=== PATIENT | female | born 1985 ===

== ENCOUNTER 2018-10-17 14:38 | Emergency (ER) | payer OTHER ==
[2018-10-17 15:00] VITALS: BP 122/74
--- NOTE | 2018-10-17 15:06 | UC ---
Complaint Female HPI - HPI Summary HPI Summary: 33-year-old otherwise healthy female presents with complaint of dysuria and suprapubic pressure since this morning. She states that she has felt hot for the last couple days but has not measured a temperature. She has had some minor nausea without vomiting or back pain. She has no personal history of urinary tract infection. She states her last menstrual period is about 3 weeks ago but states that she is hoping to . URINE HCG: NEG Lab Results 10/17/18 Range/Units 15:05 POC Urine Color Light yellow POC Urine Clarity Cloudy POC Urine pH 6.0 (5-9) POC Ur Specif [place] 1.020 (1.010-1.030) POC Urine Protein 2+ A (Negative) POC Ur Glucose (UA) Negative (Negative) POC Urine Ketones Negative (Negative) POC Urine Blood 3+ A (Negative) POC Urine Nitrite Negative (Negative) POC Urine Bilirubin Negative (Negative) POC Urine Urobilinogen 0.2 (Negative) POC U Leukocyte Esteras 3+ A (Negative) - History Of Current Complaint Stated Complaint: URINARY COMPLAINT Time Seen by Provider: 10/17/18 14:53 Hx Obtained From: Patient, Family/Virologist Hx Last Menstrual Period: [id number] Pain Intensity: 3 - Allergies/Home Medications Allergies/Adverse Reactions: Allergies Allergy/AdvReac Type Severity Reaction Status Date / Time No Known Allergies Allergy Verified 10/17/18 14:48 PMH/Surg Hx/FS Hx/Imm Hx Previously Healthy: Yes - Surgical History Surgical History: Yes Surgery Procedure, Year, and Place: wisdom teeth, T&A - Family History Known Family History: Positive: Non-Contributory - Social History Occupation: Unemployed - Just arrived in the Lives: With Family Alcohol Use: None Substance Use Type: None Smoking Status (MU): Never Smoked Tobacco Review of Systems All Other Systems Reviewed And Are Negative: Yes Constitutional: Positive: Chills. Negative: Fever Skin: Positive: Negative Respiratory: Positive: Negative Cardiovascular: Positive: Negative Gastrointestinal: Positive: Nausea. Negative: Abdominal Pain, Vomiting Genitourinary: Positive: Dysuria, Hematuria, Frequency, Urgency Motor: Positive: Negative Neurovascular: Positive: Negative Physical Exam Triage Information Reviewed: Yes Appearance: Well-Appearing, No Pain Distress Vital Signs: Initial Vital Signs Temp 98.8 F 10/17/18 14:50 Pulse 95 10/17/18 14:50 Resp 16 10/17/18 14:50 BP 122/74 10/17/18 14:50 Pulse Ox 100 10/17/18 14:50 Eyes: Positive: Conjunctiva Clear ENT: Positive: Hearing grossly normal, TMs normal Neck: Positive: Supple Respiratory: Positive: Chest non-tender Cardiovascular: Positive: RRR Abdomen Description: Positive: Nontender, Soft Pelvic Exam: Positive: Other - No CVA tenderness Musculoskeletal: Positive: No Edema Neurological: Positive: Alert Psychological Exam: Normal Complaint Female Dx - Course Course Of Treatment: Uncomplicated UTI in female. No hx of same. Tx with keflex, pyridium and cranberry. PCP referral. - Differential Dx/Diagnosis Differential Diagnosis/HQI/PQRI: Sexually Transmitted Disease, Ureteral Stone, Urinary Tract Infection Provider Diagnosis: Acute cystitis with hematuria Discharge - Sign-Out/Discharge Documenting (check all that apply): Patient Departure All imaging exams completed and their final reports reviewed: No - Discharge Plan Condition: Improved Disposition: HOME Prescriptions: Cephalexin CAP* [Keflex CAP*] 500 mg PO TID #21 cap Phenazopyridine 200 mg (NF) [Pyridium 200 MG tab *] 200 mg PO TID #9 tab Patient Education Materials: Urinary Tract Infection in Women (ED) Referrals: [facility] [Outside] [facility] [Outside] Additional Instructions: Drink plenty of fluids. Cranberry juice may help. Return with fever, back pain , vomiting, worse or other concerns. - Billing Disposition and Condition Condition: IMPROVED Disposition: Home
--- NOTE | 2018-10-19 16:00 | UC ---
- Progress Note Progress Note: urine culture preliminary results: Escherichia coli 10-25,000 CFU/mL patient on Keflex Await final sensitivity reports No change in plan Course/Dx - Diagnoses Provider Diagnoses: Acute cystitis with hematuria Discharge - Sign-Out/Discharge Documenting (check all that apply): Post-Discharge Follow Up All imaging exams completed and their final reports reviewed: No - Discharge Plan Condition: Improved Disposition: HOME Prescriptions: Cephalexin CAP* [Keflex CAP*] 500 mg PO TID #21 cap Phenazopyridine 200 mg (NF) [Pyridium 200 MG tab *] 200 mg PO TID #9 tab Patient Education Materials: Urinary Tract Infection in Women (ED) Referrals: [facility] [Outside] [facility] [Outside] Additional Instructions: Drink plenty of fluids. Cranberry juice may help. Return with fever, back pain , vomiting, worse or other concerns. - Billing Disposition and Condition Condition: IMPROVED Disposition: Home
--- NOTE | 2018-10-20 15:27 | UC ---
- Progress Note Progress Note: 10/2018 Urine culture: positive for E.Coli. Pt Rx Keflex PO Final Reprots shows sensitivity for the Kelflex PO No change Hamilton Thompson PA-C Course/Dx - Diagnoses Provider Diagnoses: Acute cystitis with hematuria Discharge - Sign-Out/Discharge Documenting (check all that apply): Post-Discharge Follow Up All imaging exams completed and their final reports reviewed: No - Discharge Plan Condition: Improved Disposition: HOME Prescriptions: Cephalexin CAP* [Keflex CAP*] 500 mg PO TID #21 cap Phenazopyridine 200 mg (NF) [Pyridium 200 MG tab *] 200 mg PO TID #9 tab Patient Education Materials: Urinary Tract Infection in Women (ED) Referrals: [facility] [Outside] [facility] [Outside] Additional Instructions: Drink plenty of fluids. Cranberry juice may help. Return with fever, back pain , vomiting, worse or other concerns. - Billing Disposition and Condition Condition: IMPROVED Disposition: Home
== END 2018-10-17 15:28 | disposition home or self-care (01) ==
LOC: UCEAST 14:38
DX: N30.01 Acute cystitis with hematuria (principal); B96.20 Unspecified Escherichia coli [E. coli] as the cause of diseases classified elsewhere; R11.0 Nausea
CPT/HCPCS: 81003; 84702; 87077; 87086; 87186; 99202; G0463

== ENCOUNTER 2018-12-05 17:28 | Emergency (ER) | payer OTHER ==
[2018-12-05 17:34] VITALS: BP 107/79
--- NOTE | 2018-12-05 17:54 | UC ---
Complaint Female HPI - HPI Summary HPI Summary: 34 y/o female presents to the urgent care - History Of Current Complaint Chief Complaint: UCGU Stated Complaint: POSS UTI Time Seen by Provider: 12/05/18 17:36 Hx Obtained From: Patient Hx Last Menstrual Period: [id number] Pain Intensity: 8 - Allergies/Home Medications Allergies/Adverse Reactions: Allergies Allergy/AdvReac Type Severity Reaction Status Date / Time No Known Allergies Allergy Verified 12/05/18 17:34 PMH/Surg Hx/FS Hx/Imm Hx - Surgical History Surgical History: Yes Surgery Procedure, Year, and Place: wisdom teeth, T&A - Family History Known Family History: Positive: Non-Contributory - Social History Alcohol Use: None Substance Use Type: None Smoking Status (MU): Never Smoked Tobacco Physical Exam - Summary Physical Exam Summary: VITAL SIGNS: Reviewed. GENERAL: Patient is a well developed and nourished female who is sitting comfortable in the examining table. Patient is not in any acute respiratory distress. HEAD AND FACE: No signs of trauma. No ecchymosis, hematomas or skull depressions. No sinus tenderness. EYES: PERRLA, EOMI x 2, No injected conjunctiva, clear watery eyes, no nystagmus. No photophobia. EARS: Hearing grossly intact. Ear canals and tympanic membranes are within normal limits. MOUTH: pharynx with no erythema, no exudates,no palatal petechiae. no B/L tonsillar enlargement Uvula in midline. NECK: Supple, trachea is midline, no lymphadenopathy, no JVD, no carotid bruit, no c-spine tenderness, neck with full ROM. CHEST: Symmetric, no tenderness at palpation LUNGS: Clear to auscultation bilaterally. No wheezing or crackles. CVS: Regular rate and rhythm, S1 and S2 present, no murmurs or gallops appreciated. ABDOMEN: Soft, non-tender. No signs of distention. No rebound no guarding, and no masses palpated. Bowel sounds are normal. BACK:no scoliosis or lesions, non tender to palpation, No B/L CVA tenderness EXTREMITIES: FROM in all major joints, no edema, no cyanosis or clubbing. NEURO: Alert and oriented x 3. No acute neurological deficits. Speech is normal and follows commands. SKIN: Dry and warm Triage Information Reviewed: Yes Vital Signs: Initial Vital Signs Temp 98.3 F 12/05/18 17:30 Pulse 97 12/05/18 17:30 Resp 18 12/05/18 17:30 BP 107/79 12/05/18 17:30 Pulse Ox 100 12/05/18 17:30 Complaint Female Dx - Differential Dx/Diagnosis Differential Diagnosis/HQI/PQRI: Cervicitis, Pelvic Inflammatory Disease, , Renal Colic, Urinary Tract Infection Provider Diagnosis: UTI (urinary tract infection), Dysuria Discharge - Sign-Out/Discharge Documenting (check all that apply): Patient Departure All imaging exams completed and their final reports reviewed: No Studies - Discharge Plan Condition: Stable Disposition: HOME Patient Education Materials: Urinary Tract Infection in Women (ED) Referrals: Darrick MECHANICAL PROJECT ENGINEER,Krissy MECHANICAL PROJECT ENGINEER [Primary Care Provider] - 3 Days Additional Instructions: 1- Please take Macrobid 100mg PO x 7 days. Pyridium 100 mg PO TID x 2 days to alleviate urinary symptoms. Increase increase fluid intake. drink cranberry juice. 2-Urine sent for culture if any abnormality, you will be notified for further treatment. 3-If symptoms do not improve please return to the urgent care or f/u with your PCP for further management. - Billing Disposition and Condition Condition: STABLE Disposition: Home
== END 2018-12-05 18:27 | disposition home or self-care (01) ==
LOC: UCEAST 17:28
DX: N39.0 Urinary tract infection, site not specified (principal); B96.20 Unspecified Escherichia coli [E. coli] as the cause of diseases classified elsewhere
CPT/HCPCS: 81003; 87077; 87086; 87186; 99212; G0463

== ENCOUNTER 2019-04-07 07:38 | Emergency (ER) | payer OTHER ==
--- OUTSIDE RECORDS SUMMARY | 2019-04-07 07:45 | XMS REPORT | Continuity of Care Document ---
:06/11/1984 External Reference #:[id number] Author Name Cristian Gonzalez JR, DO (transmitted by agent of provider Marielle Bravo ) Address [address] [place] [address] Problems Active Problems Provider Date Pelvic and perineal pain Cristian Gonzalez JR, DO Onset: 03/09/2019 Social History Type Date Description Comments Sex Unknown Tobacco Use Start: Unknown Never Smoked Cigarettes ETOH Use Denies alcohol use Recreational Drug Use Denies Drug Use Tobacco Use Start: Unknown Patient has never smoked Smoking Status Reviewed: 03/23/19 Patient has never smoked Exercise Type/Frequency Exercises regularly Seat Belt/Car Seat Always uses seat belt Allergies, Adverse Reactions, Alerts Description No Known Drug Allergies Medications Description No Active Medications Immunizations Description No Information Available Vital Signs Date Vital Result Comment 03/23/2019 1:44pm BP Systolic 126 mmHg BP Diastolic 74 mmHg Height 66.5 inches 5'6.50" Weight 167.00 lb BMI (Body Mass Index) 26.5 kg/m2 Last Menstrual Period [id number] 0 Parity 0 02/26/2019 2:40pm BP Systolic 118 mmHg BP Diastolic 78 mmHg Height 66.5 inches 5'6.50" Weight 169.00 lb BMI (Body Mass Index) 26.9 kg/m2 Last Menstrual Period 5953009 0 Parity 0 Results Test Date Facility Test Result H/L Range Note Laboratory test [facility] Cytology SEE RESULT 1 [address] [place] [address] BELOW [phone] GC/Chlamydia Dna [facility] Chlamydia Negative Negative Probe [address] [place] [address] trachomatis A[place]en [phone] Neisseria gonorrhoeae (GC) [place] Negative Negative 1 SEE RESULT BELOW Name: SOFÍA PIERCE : [birth year][address]: Cristian Gonzalez DO Acct: [id number] Unit: [id number] AGE: 34 Location: [facility] Re02/26/19 SEX: F Status: REG REF SPEC: [id number] ALYSHA: 02/26/19-[address]: Cristian Gonzalez DO REQ: [id number] RECD: 02/27/19 STATUS: SOUT _ ORDERED: TP IMAGE ANALYS, HPV/Thin Prep COMMENTS: [id number] FINAL DIAGNOSIS Negative for Intraepithelial lesion or Malignancy HPV RESULTS Date Time Test Result Flag (u) Normal Range 02/26/19 1521 HPV AYLEEN Negative Negative The high-risk HPV types detected by the assay include: 16, 18, 31, 33, 35, 39, 45, 51, 52, 56, 58, 59, 66, and 68. SPECIMEN(S) RECEIVED A. Ectocervical/Endocervical CYTOLOGY ADEQUACY Specimen Adequacy: Satisfactory of evaluation Transformation zone component identified CYTOLOGY PATIENT INFORMATION Patient Information: HPV: High risk HPV RNA testing regardless of pap results. Actual Specimen Date: 02/26/19 Last Menstrual Date: 02/04/19 Spec Date if unknown: unknown Signed by and Reported on: DIANA Mathis (ASCP) [id number] This Pap test was evaluated with the assistance of the [employer] Test Imaging System. Due to cytologic findings at the building services coordinator microscope, comprehensive manual rescreening by a Media Operator may be required. The Pap Smear is a screening test designed to aid in the detection of premalignant and malignant conditions of the uterine cervix. It is not a diagnostic procedure and should not be used as the sole means of detecting cervical cancer. Both false- positive and false- negative reports do occur. Depending on your risk status, a Pap smear should be obtained and evaluated every 1-3 years. CONTINUED ON NEXT PAGE DEPARTMENT OF PATHOLOGY, [address] [place] [address] Elpidio Dunn M.D. Director [facility] # [id number] Procedures Date Code Description Status 03/23/2019 04876 Echography Transvaginal Completed Medical Devices Description No Information Available Encounters Type Date Location Provider Dx Diagnosis Office Visit 02/26/2019 [facility] Office Cristian Gonzalez JR, Z01.419 Encntr for permit agent exam 3:00p DO (general) (routine) w/o abn findings R10.2 Pelvic and perineal pain Assessments Date Code Description Provider 03/23/2019 R10.2 Pelvic and perineal pain Ultrasounds 02/26/2019 Z01.419 Encounter for gynecological examination Cristian Gonzalez JR, DO (general) (routine) without abnormal findings 02/26/2019 R10.2 Pelvic and perineal pain Cristian Gonzalez JR, DO Plan of Treatment No Information Available Functional Status Description No Information Available Mental Status Description No Information Available Referrals Description No Information Available
[2019-04-07 07:51] VITALS: BP 101/70
--- NOTE | 2019-04-07 08:03 | UC ---
Eye Complaint HPI - HPI Summary HPI Summary: 34yo woman with acute onset of red painful eye, scant discharge, mild headache and photophobia at about 7 pm last night. Several months ago she scratched her eye and had a red eye, but it resolved quickly. - History of Current Complaint Chief Complaint: UCEye Stated Complaint: EYE ISSUE NAUSEA Time Seen by Provider: 04/07/19 07:56 Hx Obtained From: Patient Hx Last Menstrual Period: 03/30 Onset/Duration: Sudden Onset, Lasting Hours - about 12 Timing: Constant Severity Initially: Moderate Severity Currently: Moderate Pain Intensity: 7 Location of Injury: Conjunctiva, Periorbital Character: Sharp Aggravating Factor(s): Light Alleviating Factor(s): Darkness Associated Signs And Symptoms: Positive: Photophobia, Drainage (Clear). Negative: Fever, Swelling Related History: Similar Episode, Trauma - scraped eye with her nail about a month ago, but symptoms resolved quickly. - Allergies/Home Medications Allergies/Adverse Reactions: Allergies Allergy/AdvReac Type Severity Reaction Status Date / Time No Known Allergies Allergy Verified 04/07/19 07:51 Home Medications: Home Medications NK [No Home Medications Reported] 04/07/19 [History Confirmed 04/07/19] PMH/Surg Hx/FS Hx/Imm Hx Previously Healthy: Yes - Surgical History Surgical History: Yes Surgery Procedure, Year, and Place: wisdom teeth, T&A - Family History Known Family History: Positive: Diabetes, Other - No FH of autoimmune disorders. - Social History Occupation: Unemployed Lives: With Family Alcohol Use: None Substance Use Type: None Smoking Status (MU): Never Smoked Tobacco Review of Systems All Other Systems Reviewed And Are Negative: Yes Constitutional: Positive: Negative Skin: Positive: Negative Eyes: Positive: Eye Redness, Photophobia. Negative: Diplopia ENT: Positive: Negative Respiratory: Positive: Negative Cardiovascular: Positive: Negative Gastrointestinal: Positive: Negative Motor: Positive: Negative Musculoskeletal: Negative: Arthralgia, Myalgia Neurological: Positive: Headache Psychological: Positive: Negative Is Patient Immunocompromised?: No Physical Exam Triage Information Reviewed: Yes Appearance: Well-Appearing Vital Signs: Initial Vital Signs Temp 97.7 F 04/07/19 07:45 Pulse 76 04/07/19 07:45 Resp 18 04/07/19 07:45 BP 101/70 04/07/19 07:45 Pulse Ox 100 04/07/19 07:45 Eye Exam: Other - Right pupil smaller than left, sluggishly reactive. Mild lid swelling. Normal EOM. Eyes: Positive: Conjunctiva Inflamed ENT: Positive: Pharynx normal Respiratory: Positive: Lungs clear, Normal breath sounds Cardiovascular: Positive: RRR, No Murmur Musculoskeletal Exam: Normal Neurological: Positive: Alert, Muscle Tone Normal Psychological Exam: Normal Skin Exam: Normal Eye Complaint Course/Dx - Course Course Of Treatment: Suspected iritis, referred to Dr. Maldonado's office. Call made and will be seen today at [address] Nelson for evaluation. - Differential Dx/Diagnosis Differential Diagnosis/HQI/PQRI: Corneal Abrasion, Uveitis Provider Diagnosis: Uveitis Discharge ED - Sign-Out/Discharge Documenting (check all that apply): Patient Departure All imaging exams completed and their final reports reviewed: No Studies - Discharge Plan Condition: Stable Disposition: HOME Patient Education Materials: Iritis (ED) Referrals: Delfina Weinberg MD [Primary Care Provider] - Sumeet Maldonado MD [Medical Doctor] - Additional Instructions: You will be seen by Dr. Nelson at Dr. Maldonado's office this morning at 9 am for evaluation of suspected inflammatory eye condition. - Billing Disposition and Condition Condition: STABLE Disposition: Home
== END 2019-04-07 08:20 | disposition home or self-care (01) ==
LOC: UCEAST 07:38
DX: H20.9 Unspecified iridocyclitis (principal); R51 Headache
CPT/HCPCS: 99212; G0463